=== PATIENT | female | born 1995 | race Caucasian/White ===

== ENCOUNTER → 2023-09-26 14:19 | Outpatient (REF) | payer BC, SELFPAY | LOC: MRI 3T 14:19 | PROVIDERS: ATTENDING PHYSICIAN Internal Medicine; FAMILY PHYSICIAN Physician Assistant Medical | DX: Z15.01 Genetic susceptibility to malignant neoplasm of breast (principal); Z15.09 Genetic susceptibility to other malignant neoplasm | CPT/HCPCS: 77049; A9585 ==